=== PATIENT | female | born 1985 | race Caucasian/White ===

== ENCOUNTER 2017-06-12 07:55 | Observation (INO) ==
[2017-06-12] MEDS ORDERED: Ringers Solution, Lactated 1,000 ML IVC ONE (08:19)
[2017-06-12 08:23] LABS: Bilirubin,Urine Negative (Negative); Blood,Urine Negative (Negative); Clarity,Urine Cloudy (Clear); Color,Urine Yellow (Yellow); Glucose,Urine (UA) Normal (Normal); Ketones,Urine 15 mg/dL (Negative); Leukocyte Esterase,Urine Small (Negative); Nitrite,Urine Negative (Negative); Protein,Urine 30 mg/dL (Neg-Trace); Specific Gravity,Urine 1.025 (1.010-1.025); Urobilinogen,Urine Normal (Normal)
[2017-06-12 08:24] LABS: Amphetamine Screen,Urine Negative ng/mL (Cutoff=1000); Barbiturate Screen,Urine Negative ng/mL (Cutoff=200); Benzodiazepines Screen,Urine Negative ng/mL (Cutoff=200); Cannabinoid Screen,Urine Positive ng/mL (Cutoff = 50); Cocaine Screen,Urine Negative ng/mL (Cutoff= 300); Opiate Screen,Urine Negative ng/mL (Cutoff=300); Phencyclidine Screen,Urine Negative ng/mL (Cutoff=25)
[2017-06-12 08:27] LABS: Bacteria,Urine Moderate per hpf (None-Few); Hyaline Casts,Urine None Seen per lpf (None-Few); Squamous Epithelial Cell,Urine Many per lpf (None-Few)
[2017-06-12] MEDS ORDERED: Ringers Solution, Lactated 1,000 ML IVC SCH (08:30)
[2017-06-12] MEDS: Ondansetron 4 MG/2 ML VIAL IVP PRN ×2 (08:51→15:21)
[2017-06-12] MEDS ORDERED: Scopolamine Patch 1.5 MG PATCH.TD72 TD SCH (10:30)
[2017-06-12] MEDS ORDERED: Mag Hydrox/Al Hydrox/Simeth 30 ML UDC PO STA (14:08)
--- NOTE | 2017-06-12 14:40 | OB/GYN Progress Note ---
Date of Encounter: 06/12/17 Time of Encounter: 10:25 - Assessment and Plan (1) 31 weeks gestation of Current Visit: Yes Status: Acute admitted for observation Patient receives care at [facility] with Dr. Hernandez (2) Nausea and vomiting Current Visit: Yes Status: Acute IV hydration IV antiemetics Qualifiers: Vomiting type: unspecified Vomiting Intractability: unspecified Qualified Code(s): R11.2 - Nausea with vomiting, unspecified (3) Marijuana abuse Current Visit: No Status: Acute UDS sent to lab Subjective - Subjective Principal diagnosis: Nausea and vomiting in Interval history: Ms. Duran is a 31 y/o @ 31w1d presents to labor and delivery with complaints of nausea and vomiting. Patient states she tried zofran at home when that didn't work she smoked marijuana that also did not help. Patient denies fever or chills. Patient reports history of marijuana and heroin but has not had heroin in 3 years. Patient reports +FM, patient reports occasional abdominal cramping but is unsure if she is sonia. Patient denies any urinary symptoms. IV started, 1000 cc bolus of LR. CBC and electrolytes drawn and sent to lab. IV zofran and scop patch ordered. Antepartum ROS: movement normal, no loss of fluid, no vaginal bleeding, no contractions Objective - Vital Signs Vital Signs: Intake and Output 06/11/17 06/12/17 06/12/17 23:59 07:59 15:59 Other: Weight 61.8 kg Patient Weight 06/12/17 23:59 Weight 61.8 kg - Exam FHR: auscultation normal FHR comments: FHR 115 bpm Auscultation: bilateral: normal Abdomen: Present: normal appearance, soft, gravid Uterus: Present: normal - Labs Labs: Abnormal lab results Urine Clarity Cloudy (Clear) A 06/12/17 08:02 Urine Protein 30 mg/dL (Neg-Trace) H 06/12/17 08:02 Urine Ketones 15 mg/dL (Negative) H 06/12/17 08:02 Ur Leukocyte Esterase Small (Negative) H 06/12/17 08:02 Urine Microscopic RBC 5-15 per hpf (0-3) H 06/12/17 08:02 Urine Microscopic WBC 5-15 per hpf (0-3) H 06/12/17 08:02 Ur Squamous Epith Cells Many per lpf (None-Few) H 06/12/17 08:02 Urine Bacteria Moderate per hpf (None-Few) H 06/12/17 08:02 U Marijuana (THC) Screen Positive ng/mL (Cutoff = 50) H 06/12/17 08:02
[2017-06-12] MEDS ORDERED: RINGERS IVPB SCH (15:30)
[2017-06-12] MEDS ORDERED: PYRIDOXINE IVPB SCH (15:30)
[2017-06-12] MEDS ORDERED: LACTATED IVPB SCH (15:30)
[2017-06-12] MEDS ORDERED: Terbutaline 1 MG/ML VIAL SQ ONE ×2 (15:42→15:46)
[2017-06-12] MEDS ORDERED: Betamethasone Acet/SodPhos 6 MG/ML MDV IM SCH (15:45)
--- NOTE | 2017-06-12 15:45 | OB/GYN History & Physical ---
Date of Encounter: 06/12/17 Time of Encounter: 15:44 Assessment and Plan (1) Nausea and vomiting Current visit: Yes Status: Acute Continue IV antiemetic and fluids Qualifiers: Vomiting type: unspecified Vomiting Intractability: unspecified Qualified Code(s): R11.2 - Nausea with vomiting, unspecified (2) Marijuana abuse Current visit: No Status: Acute UDS sent to lab (3) 31 weeks gestation of Current visit: Yes Status: Acute admitted for observation [facility] Betamethasone 12mg IM Dr. Morgan aware of POC History of Present Illness Chief complaint: Nause and vomiting HPI: Ms. Duran is a 31 y/o @ 31w1d presents to labor and delivery with complaints of nausea and vomiting. Patient states she tried zofran at home when that didn't work she smoked marijuana that also did not help. Patient denies fever or chills. Patient reports history of marijuana and heroin but has not had heroin in 3 years. Patient reports +FM, patient reports occasional abdominal cramping but is unsure if she is sonia. Patient denies any urinary symptoms. IV started, 1000 cc bolus of LR. CBC and electrolytes drawn and sent to lab. IV zofran and scop patch ordered. After IV antiemetics patient denies feeling any better and now complains of abdominal pain. Past Med Surg Social Fam HX - Past Medical History Source: patient Medical history: hepatitis, migraine Psychiatric history: anxiety, bipolar, depression, PTSD - Past Surgical History Surgical History: cholecystectomy - Social History Smoking Status: Current every day smoker Packs per day: 0.5 Smokeless Tobacco Status: No Alcohol use: none, occasionally Drug use: marijuana - Family History Mother History Unknown: Yes Adopted: No Family Member Ethnicity: Non- Living Status: Still Living Hx Family Cardiac Disorders: Yes (HTN) Hx Family Respiratory Disorders: No Hx Family Cancer: No Hx Family GI Disorders: No Hx Family Endocrine Disorder: No Hx Family Neuromuscular Disorders: No Hx Family Neurologic Disorders: No Hx Family HEENT Disorders: No Hx Family Autoimmune Disorders: No Obstetrical History - Pregnancies : 3 Para: 2 Term: 2 : 0 Ab's: 0 Livin Medications and Allergies Multivitamin [Flintstones] 1 tab PO DAILY 04/05/16 [History] Zofran ODT 06/12/17 [History] 3 Allergy/AdvReac Type Severity Reaction Status Date / Time Sulfa (Sulfonamide Allergy Rash Verified 08/27/16 07:17 Antibiotics) topiramate [From Topamax] Allergy Fever Verified 08/27/16 07:17 Penicillins AdvReac Gastrointestinal Verified 08/27/16 07:17 Upset Review of System OB - Constitutional Constitutional ROS IM: no fever(s), no headache(s) - Cardiovascular Cardiovascular: no chest pain, no edema, no palpitations, no syncope - Respiratory Respiratory: no cough - Gastrointestinal Gastrointestinal: abdominal pain, heartburn, nausea, vomiting, no constipation, no diarrhea - Genitourinary Genitourinary: vaginal discharge, vaginal odor, no abnormal vaginal bleeding, no dysuria, no flank pain, no urinary frequency, no urinary urgency, no vaginal pruritis Exam - Constitutional Constitutional: well developed, average body habitus - HEENT HEENT: Normocephaly, Mucus Membranes Moist - Neck Neck exam: full ROM, supple - Lungs Respiratory exam: CTAB - Cardiovascular Cardiovascular exam: RRR, +S1, +S2 - Abdomen Abdomen: Present: bowel sounds normal, gravid, non tender - Extremities Extremities exam: full ROM, normal capillary refill Deep Tendon Reflex Grade: 2+ Normal - Cervix Dilation: 1 Effacement: 70 Station: -2 - Uterus Uterus exam: Present: normal size, normal contour - Anus/Rectum Anus/Rectum: Present: normal perianal skin - Comments Comments: Speculum exam: Moderate amount of white watery discharge noted. FFN and Vaginosis panel collected. SVE following Speculum exam 170/-2, vertex. FHR 125 bpm moderate variability +15x15 accels no decels noted. Irregular contractions. Results Abnormal lab results Urine Clarity Cloudy (Clear) A 06/12/17 08:02 Urine Protein 30 mg/dL (Neg-Trace) H 06/12/17 08:02 Urine Ketones 15 mg/dL (Negative) H 06/12/17 08:02 Ur Leukocyte Esterase Small (Negative) H 06/12/17 08:02 Urine Microscopic RBC 5-15 per hpf (0-3) H 06/12/17 08:02 Urine Microscopic WBC 5-15 per hpf (0-3) H 06/12/17 08:02 Ur Squamous Epith Cells Many per lpf (None-Few) H 06/12/17 08:02 Urine Bacteria Moderate per hpf (None-Few) H 06/12/17 08:02 U Marijuana (THC) Screen Positive ng/mL (Cutoff = 50) H 06/12/17 08:02 All other labs normal. - VTE Reasons for not Prescribing Prophylaxis: Treatment not Indicated - Low risk for VTE
[2017-06-12 16:15] LABS: Basophils % 0.2 %; Eosinophils % 0.2 %; Hematocrit 37.6 % (35.3-44.9); Hemoglobin 12.2 g/dL (11.5-15.4); Immature Granulocytes % 0.4 % (0-4); Lymphocytes # 1.6 K/mcL (0.6-4.6); Lymphocytes % 12.3 %; Mean Corpuscular HGB Conc 32.4 g/dL (31.6-35.5); Mean Corpuscular Hemoglobin 30.1 pg (28.0-33.3); Mean Corpuscular Volume 92.8 fL (83.0-100.0); Mean Platelet Volume 10.9 fL (9.4-12.4); Monocytes # 0.8 K/mcL (0.0-1.3); Monocytes % 5.6 %; Neutrophils # 10.8 K/mcL (1.6-8.9); Platelet Count 222 K/mcL (140-400); Red Blood Count 4.05 M/mcL (3.82-4.97); Red Cell Distribution Width 13.2 % (11.5-14.5); Segmented Neutrophils % 81.3 %
[2017-06-12 16:19] LABS: Potassium 4.1 mEq/L (3.5-5.1)
[2017-06-12 17:04] LABS: Candida DNA Not Detected (Not Detect); Gardnerella DNA ***DETECTED*** (Not Detect); Trichomonas DNA Not Detected (Not Detect)
--- NOTE | 2017-06-12 19:02 | OB/GYN Progress Note ---
Date of Encounter: 06/12/17 Time of Encounter: 18:59 - Assessment and Plan (1) 31 weeks gestation of Current Visit: Yes Status: Acute (2) Nausea and vomiting Current Visit: Yes Status: Acute pt with no emesis for last couple hours, tolerates ice chips. Discussed with Dr. Morgan will discharged home with labor and when to return to triage precautions. Explained to patient she needs come back tomorrow afternoon for second betamethasone. Pt verbalizes understanding. Qualifiers: Vomiting type: unspecified Vomiting Intractability: unspecified Qualified Code(s): R11.2 - Nausea with vomiting, unspecified (3) Marijuana abuse Current Visit: No Status: Acute Subjective - Subjective Antepartum ROS: no loss of fluid, no vaginal bleeding Objective - Vital Signs Vital Signs: Intake and Output 06/12/17 06/12/17 06/12/17 07:59 15:59 23:59 Other: Weight 61.8 kg Patient Weight 06/12/17 23:59 Weight 61.8 kg - Labs Labs: Abnormal lab results WBC 13.4 K/mcL (4.3-11.1) H 06/12/17 08:47 Neutrophils # 10.8 K/mcL (1.6-8.9) H 06/12/17 08:47 Sodium 134 mEq/L (136-145) L 06/12/17 08:47 Urine Clarity Cloudy (Clear) A 06/12/17 08:02 Urine Protein 30 mg/dL (Neg-Trace) H 06/12/17 08:02 Urine Ketones 15 mg/dL (Negative) H 06/12/17 08:02 Ur Leukocyte Esterase Small (Negative) H 06/12/17 08:02 Urine Microscopic RBC 5-15 per hpf (0-3) H 06/12/17 08:02 Urine Microscopic WBC 5-15 per hpf (0-3) H 06/12/17 08:02 Ur Squamous Epith Cells Many per lpf (None-Few) H 06/12/17 08:02 Urine Bacteria Moderate per hpf (None-Few) H 06/12/17 08:02 U Marijuana (THC) Screen Positive ng/mL (Cutoff = 50) H 06/12/17 08:02
== END 2017-06-12 19:40 | disposition home or self-care (01) ==
LOC: 1NENULAB
PROVIDERS: ADMIT Obstetrics & Gynecology; ATTEND Obstetrics & Gynecology